=== PATIENT | male | born 1955 | race Hispanic/Latino ===

== ENCOUNTER 2021-01-23 06:52 | Day surgery (SDC) | payer OTHER ==
[2021-01-20 15:06] LABS: BASOPHILS % (AUTO) 0.6 % (0.0-5.0); HEMATOCRIT 34.8 % (42-54); MEAN CORPUSCULAR HEMOGLOBIN 22.2 pg (27.0-33.0); MEAN CORPUSCULAR VOLUME 71.5 fL (79-99); MONOCYTES % (AUTO) 11.9 % (3.0-13.0); NEUTROPHILS % (AUTO) 56.3 % (40.0-77.0); PLATELET COUNT (AUTO) 318 K/uL (130-400); RED BLOOD CELL COUNT(AUTO) 4.87 MIL/uL (4.50-6.20); RED CELL DISTRIBUTION WIDTH 19.2 % (11.0-15.5)
[2021-01-22 10:03] VITALS: BP 148/77
[~2021-01-23] VITALS: Ht 172.7 cm; Wt 84.6 kg
[2021-01-23] VITALS (16 sets, daily range): BP systolic 129–162; BP diastolic 73–88
[~2021-01-23 06:52] MED LIST: AMOX-429 PO; FERR-72 PO; PANT40TA54 PO
[2021-01-23] MEDS ORDERED: LACTATED RINGERS 1000ML 1,000 ML IV ONE (08:15)
[2021-01-23] MEDS ORDERED: CEFTRIAXONE SODIUM 1 GM ONE (08:15)
[2021-01-23] MEDS ORDERED: GENTAMICIN 80 MG/NS 100 ML PB 100 ML IV ONE (08:15)
[2021-01-23] MEDS ORDERED: LIDOCAINE HCL 2% PF 20 ML JEL DISP.SYRIN MM ONE (11:33)
[2021-01-23] MEDS ORDERED: FENTANYL CITRATE PF 50 MCG/1 ML 2ML VIAL ONE (11:44)
[2021-01-23] MEDS ORDERED: PROPOFOL 10 MG/ML 20ML VIAL IV ONE (11:44)
[2021-01-23] MEDS ORDERED: SUCCINYLCHOLINE 200MG/10ML SYR ONE (11:44)
[2021-01-23] MEDS ORDERED: LIDOCAINE HCL MPF 1% 5ML VIAL ONE (11:44)
[2021-01-23] MEDS ORDERED: EPHEDRINE SULFATE 50 MG/ML AMPULE ONE (12:05)
== END 2021-01-23 14:30 | disposition home or self-care (01) ==
LOC: DAH 06:52
PROVIDERS: ATTEND Urology
DX: C61 Malignant neoplasm of prostate (principal); Z20.822 Contact with and (suspected) exposure to COVID-19; K21.9 Gastro-esophageal reflux disease without esophagitis; G47.30 Sleep apnea, unspecified; Z79.899 Other long term (current) drug therapy
CPT/HCPCS: 36415; 55700; 76872; 80048; 85025; 87635; 93005; A4215 ×2; A4221; A4222; A4223; A4510; A4600; A4649; A6260; C9803; J0330; J0696; J1580; J2704; J3010; J3490 ×2; J7030; J7120; 76942

== ENCOUNTER 2024-01-24 05:58 | Emergency (ER) | payer OTHER ==
[~2024-01-24] VITALS: Ht 165.1 cm; Wt 84.8 kg
[2024-01-24 07:27] LABS: APPEARANCE,URINE CLEAR (CLEAR); BILIRUBIN,URINE NEGATIVE (NEGATIVE); COLOR,URINE LIGHT-YELLOW (YELLOW); GLUCOSE, URINE (UA) NEGATIVE (NEGATIVE); KETONES,URINE NEGATIVE (NEGATIVE); LEUKOCYTE ESTERASE ,URINE NEGATIVE Leu/uL (NEGATIVE); NITRATE,URINE NEGATIVE (NEGATIVE); OCCULT BLOOD,URINE NEGATIVE (NEGATIVE); PROTEIN,URINE NEGATIVE (NEGATIVE); UROBILINOGEN,URINE 0.2 mg/dL (0.2-1.0)
[2024-01-24 07:32] LABS: ADD UA MICROSCOPIC NO
[2024-01-24] MEDS: TAMSULOSIN HCL 0.4 MG CAP.ER.24H PO ONE (08:49)
[2024-01-24] MEDS ORDERED: TAMS-1 PO (08:57)
[2024-01-24 09:35] VITALS: BP 129/77; PULSE 66; RESP 14; O2SAT 96
== END 2024-01-24 09:36 | disposition home or self-care (01) ==
LOC: EDH 05:58
DX: R33.9 Retention of urine, unspecified (principal)
CPT/HCPCS: 81003